=== PATIENT | female | born 1985 | race Caucasian/White ===

== ENCOUNTER 2021-12-05 17:50 | Emergency (ER) | payer OTHER ==
[~2021-12-05] VITALS: Ht 172.7 cm; Wt 81.8 kg
[~2021-12-05 17:50] MED LIST: DICYCLOMINE HCL20 MG PO; IMODIUM A-D2 M2 PO; ONDANSETRON ODT4 MG PO; SERTRALINE HCL50 MG PO; SIMETHICONE180 MG PO; WELLBUTRIN XL150 MG PO
--- OUTSIDE RECORDS SUMMARY | 2021-12-05 17:54 | XMS ---
PreManage Notification: ROSA HUIZAR Security Pipe Smoker Machine Operator Events No recent Security Events currently on file CRITERIA MET - [facility] PROVIDERS SUSAN CANTU [facility] Current PHONE: [phone] ANAI WALLER Barrel Finisher/Stationary Engineer [facility] TEAM PHONE: [phone] Junior has no Care Guidelines for this patient. EYohannes VISIT COUNT (12 MO.) Antonia Calvo TOTAL 2 NOTE: Visits indicate total known visits. ED/UCC VISIT TRACKING (12 MO.) 12/05/2021 17:52 JORGE Sosa [place] TYPE: Emergency COMPLAINT: - HEAVY VAGINAL BLEEDING 08/09/2021 14:20 J[facility]GE S[facility] [place] TYPE: Emergency COMPLAINT: - DIARRHEA DIAGNOSES: - Diarrhea, unspecified INPATIENT VISIT TRACKING (12 MO.) No inpatient visits to display in this time frame [id number]
[2021-12-05] MEDS ORDERED: ZOLOFT100 MG PO (19:13)
== END 2021-12-05 20:00 | disposition home or self-care (01) ==
LOC: ED 17:50
DX: N92.0 Excessive and frequent menstruation with regular cycle (principal)
CPT/HCPCS: 99283

== ENCOUNTER 2022-06-01 09:00 | Day surgery (SDC) | payer OTHER ==
[~2022-06-01] VITALS: Ht 172.7 cm; Wt 95.5 kg
--- NOTE | ~2022-06-01 | OR ---
[facility] [address] [place], [place] [address] Draft DATE OF OPERATION: 06/01/2022 SURGEON: Vinh Carey DO ROLL SKINNER: Wenceslao Calhoun DO. PROCEDURE: Total laparoscopic hysterectomy, cystoscopy. PREOPERATIVE DIAGNOSIS: Abnormal uterine bleeding, uterine fibroids, prior history of tubal ligation. POSTOPERATIVE DIAGNOSIS: Abnormal uterine bleeding, uterine fibroids, prior history of tubal ligation. ANESTHESIA: General. COMPLICATIONS: None. FINDINGS: Mildly enlarged fibroid uterus, tubes surgically absent. Normal-appearing bilateral ovaries. Hipolito-Masters defect present in the posterior cul-de-sac, otherwise, free of intraabdominal adhesions. INDICATION: The patient is a 36-year-old female with prior history of tubal ligation and consistent history of abnormal uterine bleeding with significant interference with daily activities during menstruation. She strongly desires definitive surgical management and has a known history of fibroids. Endometrial tissue sampling was benign and she has repeatedly strongly requested definitive surgical management in the form of a hysterectomy. Risks, benefits, alternatives were discussed. Bleeding was temporarily managed with Depo with significant impact on the patient's mood. All questions regarding surgical risks, benefits, and alternatives were answered to the best of my ability to patient's apparent satisfaction and she elected to proceed. DESCRIPTION OF PROCEDURE: The patient was taken back to the operating room. She was given 2 g Ancef PATIENT NAME: ROSA HUIZAR OPERATIVE REPORT DATE OF : 83 REPORT #: [id number] PHYSICIAN: VINH CAREY DO PCP: ORA CABRERA PA-C REPORT IS CONFIDENTIAL AND NOT TO BE RELEASED WITHOUT AUTHORIZATION [facility] [address], [place] [address] Draft preoperatively. She was positioned in dorsal lithotomy, placed under general anesthesia, and prepped and draped in normal sterile fashion. Weighted speculum was placed in the vagina. The cervix was grasped with an Allis clamp in the 12 o'clock position and easily dilated with eSNF uterine manipulators, sounded to 10 cm. Airway The[employer] uterine manipulator was placed without difficulty. All other instrumentation was removed. Surgeon's gloves were changed and attention was turned to the abdomen. Local anesthetic was injected infraumbilically in the right and left lower quadrants. The incision was made with a scalpel in a curvilinear manner through patient's prior tubal ligation scar and carried down to the underlying layer of fascia with blunt and sharp dissection with Metzenbaum scissors. The fascia was grasped with hemostats, elevated, and incised with Metzenbaum scissors and then inferior and superior lips of fascia were each grasped with 0 Vicryl stay suture. Peritoneum was entered bluntly. Finger sweep confirmed intraabdominal placement. Yossi trocar was placed without difficulty and pneumoperitoneum was achieved with CO2 gas. In each the left and right lower quadrants where local anesthetic had previously been infiltrated, incision was made with a scalpel, first in the left with 5 mm incision, allowing for placement of a 5 mm trocar under direct visualization without complication. Then in the right lower quadrant, an 8 mm incision allowing for placement of an expandable trocar under direct visualization also without complication. Pelvis was further surveyed through use of Trendelenburg positioning and blunt graspers to retract the bowel with findings as noted above. LigaSure device was used to cauterize and cut left utero-ovarian ligament. The LigaSure device was used for the remainder of case except as otherwise noted. Right utero-ovarian ligament was similarly cauterized and cut. Left round ligament was then cauterized and cut and broad ligament entered allowing for careful dissection of the anterior leaf of the broad ligament to the level of the cervix which was then brought medially initiating start of the bladder flap and posteriorly to the level of the uterosacral ligament medially between the two ligaments. Uterine vessels were then skeletonized, cauterized, and cut with excellent development of avascular planes and in similar manner on the right round ligament was cauterized and cut allowing for entry into the broad ligament. Anterior broad ligament was dissected inferiorly and medially to meet the prior dissection and posteriorly and medially also to meet the prior dissection allowing excellent visualization of the uterine vessels which were further skeletonized, cauterized, and cut with excellent dissection around the VCare uterine manipulator cup. Colpotomy was then made with Sonicision device and completed easily without complication. Uterus was delivered vaginally. Vaginal packing was placed. Surgeon's gloves were changed once again. Attention was returned to the abdomen. Vaginal cuff was noted to be hemostatic. Cuff closure was completed with V-Loc suture using the Endo Stitch device in a running fashion. The pelvis was suction irrigated. Following closure, excellent hemostasis persisted. Peritoneum was evacuated monitoring vaginal cuff which remained hemostatic. All instrumentation was removed. Fascia was closed with 0 Vicryl in a running fashion without difficulty or complication. Skin was closed with 4-0 Monocryl. Florentino catheter was removed. Cystoscopy was completed with PATIENT NAME: ROSA HUIZAR OPERATIVE REPORT DATE OF : [birth year] REPORT #: [id number] PHYSICIAN: VINH CAREY DO PCP: ORA CABRERA PA-C REPORT IS CONFIDENTIAL AND NOT TO BE RELEASED WITHOUT AUTHORIZATION [facility] [address] [place], [place] [address] Draft excellent visualization of bowel in the bladder dome, intact bladder without puckering or suture was noted, and brisk bilateral ureteral efflux was noted. All instrumentation was removed. Sponge and instrument counts were correct, and the patient was taken to recovery room in stable and satisfactory condition. Vinh Carey DO EMZena/MODL /[id number] Copies: ~ PATIENT NAME: ROSA HUIZAR OPERATIVE REPORT DATE OF : [birth year] REPORT #: [id number] PHYSICIAN: VINH CAREY DO PCP: ORA CABRERA PA-C REPORT IS CONFIDENTIAL AND NOT TO BE RELEASED WITHOUT AUTHORIZATION
[~2022-06-01 09:00] MED LIST changes: +BENTYL10 MG/1 ML PO; +COQ-10100 MG PO; +DEPO-MEDRO80 MG/1 ML INJ; +FISH OIL 1,0001 EAC5 PO; +LIPITOR20 MG; +MELATONIN10 M2 PO; +MELOXICAM7.5 MG PO; +MULTI VITAMIN1 EACH PO; +OMEPRAZOLE20 M1 PO; +OSTERA TABLET1 EACH PO; +PROBIOTIC1 EAC5 PO; +RENA-VITE RX T1 EACH PO; +ZOLOFT100 MG PO
--- NOTE | 2022-06-01 14:59 | NUR ---
06/01/22 1459 Olga Kemp 1452- PT ARRIVES TO PACU REACTIVE TO VERBAL STIMULI. PT REPORTS NO PAIN OR NAUSEA. STATES SHE IS "JUST COLD". PT PROVIDED WARM BLANKETS. PT FALLS TO SLEEP WHEN NOT BEING TALKED TO. RESP EVEN AND UNLABORED. OXYGEN SAT HIGH 90'S TO 100% ON 6L VIA MASK. 1458- PT ASKING FOR HELP WITH ADJUSTING HER PILLOW. PILLOW ADJUSTED. PT REPORTS SHE IS MORE COMFORTABLE.
--- NOTE | 2022-06-01 15:53 | NUR ---
PT TRANSPORTED BACK TO DAY SURGERY ROOM 5. REPORT TAKEN FROM RIVERA PAYAN. PT REPORTS PAIN 2/10. DENIES NAUSEA. PT'S MOTHER IN ROOM. PT AWAKE AND TALKING WITH MOTHER. PT SIPPING APPLE JUICE AND EATING VANILLA PUDDING AT BEDSIDE. FIDELIA PAWS WARMER IN USE. CALL LIGHT WITHIN REACH.
--- NOTE | 2022-06-01 16:20 | NUR ---
PAIN MEDICATION GIVEN. PT SITTING UP IN BED EATING CRACKERS, PUDDING AND SIPPING WATER. PT TALKING WITH MOTHER AT BEDSIDE. CALL LIGHT WITHIN REACH.
--- NOTE | 2022-06-01 16:43 | NUR ---
PT AMBULATED WITH ASSISTANCE TO RESTROOM. PT NOT ABLE TO URINATE. PT AMBULATED BACK TO ROOM 5 WITH ASSISTANCE. WATER REFILLED. CALL LIGHT WITHIN REACH.
--- NOTE | 2022-06-01 17:01 | NUR ---
PT RESTING IN BED WITH MOTHER AT BEDSIDE. PT REPORTS 3/10 PAIN. DENIES NAUSEA. PT STATES SHE WOULD LIKE TO TRY GOING TO THE BATHROOM AGAIN IN AWHILE. PT DRINKING ICE WATER AT BEDSIDE. CALL LIGHT WITHIN REACH.
--- NOTE | 2022-06-01 17:36 | NUR ---
PT AMBULATED TO RESTROOM WITH MINIMAL ASSISTANCE. URINATED 100 ML BRIGHT YELLOW URINE. PT AMBULATED BACK TO ROOM WITH MINIMAL ASSISTANCE. DISCHARGE INSTRUCTIONS REVIEWED WITH PT. NO QUESTIONS OR CONCERNS. IV DC WNL, TIP INTACT. PT DISCHARGED FROM DAY SURGERY ROOM 5 VIA WHEELCHAIR TO PERSONAL AUTOMOBILE TO MOTHER.
--- NOTE | 2022-06-05 15:17 | PATH ---
[facility] [address] [place], [place] [address] Signed SPECIMEN(S): A UTERUS AND CERVIX SPECIMEN SOURCE: A. UTERUS AND CERVIX CLINICAL HISTORY: Abnormal uterine and vaginal bleeding. FINAL PATHOLOGIC DIAGNOSIS: Uterus and cervix: - Weakly proliferative endometrium, negative for hyperplasia or atypia. - Endometrial adenomyosis. - Benign myometrial leiomyomas. - Benign endocervix and ectocervix. JVR:osmin:C2NR MICROSCOPIC EXAMINATION: Histologic sections of all submitted blocks are examined by light microscopy. These findings, together with the gross examination, support the pathologic diagnosis. GROSS DESCRIPTION: The specimen, labeled and designated "Chong," and designated on the requisition "uterus, cervix," is received in formalin and consists of a uterus (160 g, 7.2 cm superior to inferior, 6.5 cm cornu to cornu, 5.0 cm anterior to posterior), attached cervix (3.0 cm in length x 3.0 cm in diameter) with merritt to red-brown cervical mucosa and irregularly shaped os (0.9 x 0.7 cm). The uterine serosa is red-brown and distorted by subserosal nodules. Sectioning the cervix reveals a merritt-pink herringbone endocervix (endocervical canal: 2.7 cm in length x 0.9 cm in diameter) and multiple mucoid material-filled cysts within the wall of the cervix and measure up to 0.3 cm. The endometrial cavity (5.0 cm superior to inferior x 3.6 cm cornu to cornu) contains merritt-pink endometrial lining that measures 0.1 cm in thickness. The myometrium is merritt-pink to subserosally red-brown and trabeculated measures up to 2.8 cm in thickness with multiple merritt, well-circumscribed intramural and subserosal nodules that range in size from 0.2-2.6 cm in greatest dimension. Cassette Summary: (A1) Cervix PATIENT NAME: ROSA HUIZAR PATHOLOGY DATE OF : 83 REPORT #: [id number] PHYSICIAN: ARNAV HAMILTON PCP: ORA CABRERA PA-C REPORT IS CONFIDENTIAL AND NOT TO BE RELEASED WITHOUT AUTHORIZATION [facility] [address], [place] [address] Signed (A2) Endomyometrium (A3-A4) Myometrial nodules AC (under the direct supervision of a pathologist) The Gross Description was prepared using a voice recognition system. The report was reviewed for accuracy; however, sound-alike word errors, addition and/or deletions may occur. If there is any question about this report, please contact Client Services. PERFORMING LABORATORY: The technical component was performed by [facility], [address] [place] [id number] (CLIA# [id number]). Professional interpretation was performed by [facility], [address] [place] [address], [place] [address] (CLIA#: [id number]). Diagnostician: Alejandro Cortés MD Pathologist Electronically Signed 06/05/2022 Copies: ~ PATIENT NAME: ROSA HUIZAR PATHOLOGY DATE OF : [birth year] REPORT #: [id number] PHYSICIAN: ARNAV PATHOLOGY PCP: ORA CABRERA PA-C REPORT IS CONFIDENTIAL AND NOT TO BE RELEASED WITHOUT AUTHORIZATION
== END 2022-06-01 17:40 | disposition home or self-care (01) ==
LOC: DS 09:00 → OPS 09:00 → DS 12:00 → OPS 12:00
PROVIDERS: ATTEND Obstetrics & Gynecology
PROC: 0UT94ZZ Resection of Uterus, Percutaneous Endoscopic Approach (ICD-10-PCS; principal; 2022-06-01 11:45)
DX: N80.03 Adenomyosis of the uterus (principal); N93.9 Abnormal uterine and vaginal bleeding, unspecified; D25.9 Leiomyoma of uterus, unspecified; G43.009 Migraine without aura, not intractable, without status migrainosus
CPT/HCPCS: J0131; J0690; J1100; J1644; J1885; J2001; J2250; J2405; J2704; J3010; J3475; J7121

== ENCOUNTER 2023-05-04 06:20 | Day surgery (SDC) | payer OTHER ==
--- NOTE | 2023-04-26 09:56 | NUR ---
PHONE CALL TO PT AT THIS TIME TO COMPLETE PHONE PRE-ADMIT. NO ANSWER, LEFT MESSAGE FOR PT AND EXPLAINED THAT I WOULD TRY TO REACH HER AGAIN AT 12NOON, AND 1500 TODAY. ALSO LEFT NUMBER THAT SHE COULD CALL ME BACK ON.
[~2023-05-04] VITALS: Ht 172.7 cm; Wt 113.6 kg
[~2023-05-04 06:20] MED LIST changes: +ADVIL200 M1 PO; +ELMIRON100 MG PO; +HYDROCODON-ACE1 EA10 PO; +LACTATED RINGER'S 1,000 ML IV SCH; +LOVASTATIN20 MG PO; +LYRICA25 MG PO; +PHENAZOPYRIDIN200 MG PO; +SOLIFENACIN SUC10 MG PO; +TYLENOL EXTRA500 MG PO
[2023-05-04] MEDS ORDERED: BUPIVACAINE HCL 0.25% 50 ML MDV ONE (06:21)
[2023-05-04 06:42] VITALS: BP 142/81
[2023-05-04] MEDS ORDERED: OMEPRAZOLE20 MG PO (06:51)
[2023-05-04] MEDS ORDERED: ZYRTEC10 MG PO (06:51)
[2023-05-04] MEDS ORDERED: LIDOCAINE HCL 1% 5 ML SDV INJ ONE (07:00)
[2023-05-04] MEDS ORDERED: CEFAZOLIN SODIUM 2 GM/20 ML SYR IV SCH (07:00)
[2023-05-04] MEDS ORDERED: IBLOOD GLUCOSE TEST STRIP 1 EA TEST VI PRN ×2 (07:00→08:45)
[2023-05-04] MEDS ORDERED: dexmedeTOMIDine HCl 200 MCG/2 ML VIAL ONE (07:34)
[2023-05-04] MEDS ORDERED: LIDOCAINE HCL 2% 5 ML SDV ONE (07:35)
[2023-05-04] MEDS ORDERED: propofoL 200 MG/20 ML VIAL ONE (07:35)
[2023-05-04] MEDS ORDERED: KETOROLAC TROMETHAMINE 30 MG/ML VIAL ONE (08:15)
[2023-05-04] MEDS ORDERED: DEXAMETHASONE SOD PHOS 4 MG/ML VIAL ONE (08:15)
[2023-05-04] MEDS ORDERED: ondansetron HCL 4 MG/2 ML VIAL ONE (08:15)
[2023-05-04] MEDS ORDERED: fentaNYL citrate 100 MCG/2 ML VIAL ONE (08:16)
[2023-05-04] MEDS ORDERED: HYDROCODON-ACE1 EA10 PO (08:44)
[2023-05-04] MEDS ORDERED: droPERidol 5 MG/2 ML VIAL IV PRN (08:45)
[2023-05-04] MEDS ORDERED: NALOXONE HCL 0.4 MG SYR IV PRN (08:45)
[2023-05-04] MEDS ORDERED: HYDROCODONE/ACETA 5/325 TAB PO PRN (08:45)
[2023-05-04] MEDS ORDERED: fentaNYL citrate 100 MCG/2 ML VIAL IV PRN (08:45)
[2023-05-04] MEDS ORDERED: ondansetron HCL 4 MG/2 ML VIAL IV PRN (08:45)
--- NOTE | 2023-05-04 08:46 | NUR ---
05/04/23 0846 Yuni Bellamy 0841 PT TO PACU ALERT AND AWAKE DENIES PAIN AND NAUSEA, PT CAME IN CONVERSING WITH STAFF.
[2023-05-04 09:04] VITALS: BP 118/79
--- NOTE | 2023-05-04 09:08 | NUR ---
LE 0900: PT IS BACK TO DS FROM PACU. SHE IS AWAKE AND ALERT. CALL LIGHT WITHIN REACH. WATER ON BEDSIDE TABLE, SHE IS TOLERATING SIPS. NO COMPLAINTS OF PAIN. DC CRITERIA IS REVIEWED.
--- NOTE | 2023-05-04 09:14 | NUR ---
LE 0905: PT IS GIVEN APPLE SAUCE, FELICIA CRACKERS, AND MORE WATER.
[2023-05-04 09:59] VITALS: BP 129/68
--- NOTE | 2023-05-04 10:00 | NUR ---
INTO PTS ROOM FOR ASSESSMENT. PT WITH L ARM ELEVATED AT HEART LEVEL ON PILLOW WITH ICE IN PLACE. PT REPORTS NUMBNESS WEARING OFF SOME AND IS ABLE TO WIGGLE FINGERS. CAP REFILL IN LUE FINGERS IS LESS THAN 3 SEC. PT DENIES PAIN. PT HAS BEEN ABLE TO TOLERATE BOTH FOOD AND FLUIDS AND DENIES AND N/V. PT UP TO RESTROOM AND HAS VOIDED 500ML PALE, YELLOW, CLR URINE. DRSGS TO L WRIST AREA ARE CDI. NO BLEEDING OR SHADOWING SEEN. IV WAS SL. PT LEFT AT BEDSIDE TO GET DRESSED.
--- NOTE | 2023-05-04 10:21 | NUR ---
1021 PT USED CALL LIGHT AND REPORTED THAT SHE NEEDS TO URINATE. PT AMBULATED TO BATHROOM. PT REPORTS NO DIZZINESS OR NAUSEA. 1026 PT ABLE TO VOID 500 MLS. PT AMBULATED BACK TO ROOM. PT GETTING DRESSED.
[2023-05-04 10:44] VITALS: BP 133/73
--- NOTE | 2023-05-04 11:40 | NUR ---
LE 1030 - INTO PTS ROOM FOR DISCHARGE INSTRUCTIONS AND IV REMOVAL. IV REMOVED AND CATH TIP NOTED TO BE INTACT. PRESSURE DRSG WAS APPLIED WITH GUAZE AND COBAN. PT CONT TO DENY NAUSEA OR PAIN. PT HAS MET ALL CRITERIA FOR DISCHARGE AND DENIES ANY FURTHER QUESTIONS OR CONCERNS. PT PHONED HER MEDICAL TRANSPORT COMPANY FOR P/U RIDE. PTS [facility]CO RX WAS E-FAXED TO HER LOCAL PHARMACY ON FILE. NO ACUTE CHANGES IN DRSG TO LUE OBSERVED W/REASSESSMENT. LE 1055 - PT TRASNPORTED OF UNIT [place]IA [place] TO PASSENGER SIDE OF [employer]ICAL [employer] VEHICLE. PT TOOK ALL PERSONAL BELONGINGS WITH HER.
--- NOTE | 2023-05-07 07:04 | OR ---
[facility] [address] [place], [place] [address] Signed DATE OF OPERATION: 05/04/2023 SURGEON: Tiffanie Bellamy MD PREOPERATIVE DIAGNOSIS: Carpal tunnel syndrome, left. POSTOPERATIVE DIAGNOSIS: Carpal tunnel syndrome, left. PROCEDURE PERFORMED: Carpal tunnel release, left. ELECTRONICS TECHNICIAN APPRENTICE: None. ANESTHESIA: General. TOURNIQUET TIME: 9 minutes. BRIEF HISTORY: Nori is a 37-year-old female with progressive worsening of numbness and tingling in her hand. Nerve conduction studies were consistent with significant carpal tunnel. Risks and benefits of operative release were discussed with her and she elected to proceed. DESCRIPTION OF OPERATION: Once consent was obtained, she was taken to the operating room. After adequate anesthesia, she was placed on the operating table. All downside pressure points were well padded. The left arm was placed on the hand table and exsanguinated using Esmarch bandage. Tourniquet inflated to 200 mmHg. Standard 1.5 cm incision was made in the distal wrist crease, carried through the skin and subcutaneous tissue. The palmaris longus was identified, retracted and protected. The transverse carpal ligament was dissected free of overlying soft tissue proximally and distally under loupe magnification. Then using tenotomy scissors, it was released proximally and distally to the distal extent. Proximally it was released 1.5 cm. The carpal tunnel was then palpated using a [place] and found to be completely released. The wound was copiously irrigated with normal saline, closed with 3-0 nylon, injected with 9 mL of 0.25% of Electronically Signed By: TIFFANIE BELLAMY MD 05/07/23 0704 PATIENT NAME: NORI HUIZAR OPERATIVE REPORT DATE OF : 83 REPORT #: [id number] PHYSICIAN: TIFFANIE BELLAMY MD PCP: ORA CABRERA PA-C REPORT IS CONFIDENTIAL AND NOT TO BE RELEASED WITHOUT AUTHORIZATION [facility] [address] [place], [place] [address] Signed plain Marcaine. The wound was dressed with bacitracin, Adaptic, 4 x 8s, and gauze. She tolerated the procedure well. All sponge, needle, and instrument counts correct. Tiffanie Bellamy MD BA/MODL /[id number] Copies: ~ Electronically Signed By: TIFFANIE BELLAMY MD 05/07/23 0704 PATIENT NAME: NORI HUIZAR OPERATIVE REPORT DATE OF : 83 REPORT #: [id number] PHYSICIAN: TIFFANIE BELLAMY MD PCP: ORA CABRERA PA-C REPORT IS CONFIDENTIAL AND NOT TO BE RELEASED WITHOUT AUTHORIZATION
== END 2023-05-04 10:55 | disposition home or self-care (01) ==
LOC: DS 06:20
PROVIDERS: ATTEND Specialist
PROC: 01N50ZZ Release Median Nerve, Open Approach (ICD-10-PCS; principal; 2023-05-04 08:15)
DX: G56.02 Carpal tunnel syndrome, left upper limb (principal); F32.9 Major depressive disorder, single episode, unspecified; E78.00 Pure hypercholesterolemia, unspecified; G47.33 Obstructive sleep apnea (adult) (pediatric); K58.9 Irritable bowel syndrome, unspecified
CPT/HCPCS: J0690; J1100; J1885; J2001; J2405; J2704; J3010; J7121